=== PATIENT | female | born 1965 | race Caucasian/White ===

== ENCOUNTER 2023-09-29 11:30 | Emergency (ER) | payer MEDICARE, SELFPAY ==
--- NOTE | ~2023-09-29 | XR_ITS ---
[[id number] ] INDICATION: Left rib pain TECHNIQUE: Frontal projection of the upper left ribs, frontal projection of the lower left ribs, obli que projection of all the left ribs, frontal inspiratory chest x-ray for interpretation. FINDINGS: There are no displaced rib fractures identified. There are no soft tissue abnormality see n. There is left basilar atelectasis. No pneumothorax. IMPRESSION: 1:No acute displaced rib fractures. Reviewed, dictated and finalized at location A.
[2023-09-29 11:42] VITALS: BP 130/86; PULSE 82; RESP 20; TEMP 36.5; O2SAT 100
--- NOTE | 2023-09-29 11:44 | ED.GENADULT ---
HPI - General Adult General Chief complaint: Chest Pain Stated complaint: chest pain/sore Source: patient, RN notes reviewed and old records reviewed Mode of arrival: ambulatory Limitations: no limitations History of Present Illness HPI narrative: 57-year-old female presents to [facility] with complaints of left rib pain this started a couple days ago after doing yd work. Patient states was trying to start mom or felt a pop. Patient states pain has worsened over last couple days. Patient states hurts to take a deep breath. Patient denies shortness of breath. Related Data Home Medications Medication Instructions Recorded Confirmed amitriptyline 10 mg tablet mg 09/29/23 clonazepam 0.5 mg tablet mg 09/29/23 ezetimibe 10 mg tablet mg 09/29/23 gabapentin 100 mg capsule mg 09/29/23 pantoprazole 40 mg tablet,delayed mg PO 09/29/23 release sumatriptan succinate 100 mg tablet mg PO 09/29/23 Allergies Allergy/AdvReac Type Severity Reaction Status Date / Time No Known Allergies Allergy Unverified 09/26/16 16:48 Review of Systems Constitutional: Constitutional: Reports no additional constitutional complaints, Denies body ache(s), Denies chills, Denies fatigue, Denies fever(s) and Denies headache(s) Eyes: Eyes: Reports no additional eye complaints and Denies blurry vision ENT: Reports system reviewed and no additional complaints, except as documented, Denies vertigo, Denies dizziness, Denies ear discharge, Denies otalgia, Denies facial pain, Denies headache(s), Denies nasal congestion, Denies nasal discharge, Denies sinus pain, Denies sinus pressure and Denies sore throat Cardiovascular: Cardiovascular: Reports no additional cardiovascular complaints, Denies chest pain, Denies chest pain at rest, Denies rapid heart rate and Denies dyspnea Respiratory: Respiratory: Reports no additional respiratory complaints, Denies chest congestion, Denies cough, Reports pain on inspiration, Denies pain with cough and Denies dyspnea Gastrointestinal: Gastrointestinal: Denies abdominal pain, Denies diarrhea, Denies nausea and Denies vomiting Musculoskeletal: Musculoskeletal: Reports as per HPI Comments: Left rib pain Integumentary/Breasts: Skin/Breast: Denies rash Neurologic: Reports system reviewed and no additional complaints, except as documented, Denies vertigo, Denies dizziness and Denies headache(s) Endocrine: Endocrine: Denies fatigue PMFSH Comments At the time of my signature, I reviewed and agree with the nursing past medical, surgical, social, and family history. There is no relevant family history pertinent to the patient complaint. Exam Const: General: cooperative, healthy appearing, no acute distress and well nourished Nutritional Appearance: well nourished Orientation/consciousness: patient oriented x3 Limitations: no limitations HENMT: Head: normal to inspection and normocephalic Ears: external ears normal Face/Nose/Sinus: normal facial exam Face and sinus: normal facial exam Mouth: Yes Normal oral and palatal mucosa present, Yes oropharynx normal and Yes moist mucous membranes Eyes: General: appearance normal, both eyes and all related structures Sclera: sclerae normal Pupils: Equal, round and reactive pupils present Chest: Breast/axilla palpation: normal palpation of the breasts Other: left rib tenderness Resp: Effort & Inspection: normal respiratory effort, able to speak in complete sentences, no audible wheezes, no cough, no respiratory distress and no retractions Auscultation: clear to auscultation bilaterally, no crackles, no rales, no rhonchi and no wheezes Cardio: Rate: regular rate Rhythm: regular rhythm Skin: General skin exam: normal color and no rashes or lesions noted Neuro: General: patient oriented x3 Cranial nerves: Yes Equal, round and reactive pupils present Psych: Appearance: grossly normal Mental Status: mental status grossly normal Speech and movement: Normal speech and movement present Affect: normal affect Course Course Emergency Course: Patient is aware of diagnosis, understands and agrees to treatment plan.? Anticipatory guidance given.? Patient agrees to follow-up as directed and is aware of reasons to seek care at the emergency department. Some parts of this dictation were generated by voice recognition software and may contain typographical and/or grammatical inaccuracies. Level of Care: Express Care Visit Vital Signs Vital signs: Reviewed Medical Decision Making MDM Narrative Medical decision making narrative: patient with left rib pain after hearing a pop all working yd. Patient's x-ray negative for fracture. Will treat as this is a strain. Patient resting comfortably without signs or symptoms of acute distress, nontoxic appearing, vital signs stable. patient appropriate for discharge home and outpatient care, with instructions on close monitoring, close follow-up, and when to seek emergency care. Discharge instructions reviewed with patient, as well as provided in writing per nursing staff. The instructions also include specific and strict return/GO TO THE ER as well as f/u information. All questions have been answered, and the patient deny any further questions with discharge and discharge plan. Differential Diagnosis Differential Diagnosis: muscle strain, rib fracture, contusions Medical Records Medical records reviewed: Yes I reviewed the external patient's medical records. Vital Signs Vital Signs: reviewed Lab Data Lab results reviewed: Yes I reviewed the patient's lab results. Discharge Plan Discharge Clinical Impression: Muscle strain of anterior chest wall Patient Disposition: Home, Self-Care Condition: Stable Instructions: Muscle Strain (ED) Additional Instructions: Rest Ice or heat to area for about 15-20 minutes every 2-3 hours Take OTC ibuprofen as directed for pain Follow up with your PCP in 7 days or as needed. Go to emergency room for worsening of conditions Patient Language: Uzbek Prescriptions: New ibuprofen 800 mg tablet 800 mg PO TID PRN (Reason: pain) Qty: 15 0RF No Action sumatriptan succinate 100 mg tablet PO clonazepam 0.5 mg tablet amitriptyline 10 mg tablet pantoprazole 40 mg tablet,delayed release (DR/EC) PO gabapentin 100 mg capsule ezetimibe 10 mg tablet Follow-up/Referrals: PHYSICIAN NOT ON STAFF,NONSTAFF [Primary Care Provider] - 1 Week ( express care follow-up) Time of Disposition: 12:14
== END 2023-09-29 12:19 | disposition home or self-care (01) ==
PROVIDERS: Emergency Provider Registered Nurse
DX: S29.011A Strain of muscle and tendon of front wall of thorax, initial encounter (principal); S21.102A Unspecified open wound of left front wall of thorax without penetration into thoracic cavity, initial encounter; X58.XXXA Exposure to other specified factors, initial encounter; Y93.H9 Activity, other involving exterior property and land maintenance, building and construction; K21.9 Gastro-esophageal reflux disease without esophagitis
CPT/HCPCS: 71101; 99203; G0463